=== PATIENT | male | born 1940 | race Asian ===

== ENCOUNTER 2016-11-25 10:13 | Emergency (ER) | payer MEDICARE ==
[2016-11-25] MEDS ORDERED: KETOROLAC 15 MG INJ IV STA (10:25)
[2016-11-25] MEDS ORDERED: SOD CHLORIDE 0.9% 1,000 ML IV STA (10:25)
[2016-11-25] MEDS ORDERED: DIPHTH/TET/ACEL PERTUSS (ADULT) 0.5 ML VIAL IM* ONE (10:30)
[2016-11-25] MEDS ORDERED: NEOMYC/POLYMYX/BACIT 30 GM OINT TOP ONE (10:30)
[2016-11-25 11:02] LABS: ABNORMAL IP MESSAGE 1; BASOPHILS % 0.2 % (0.0-2.0); EOSINOPHILS # 0.2 10^3/ul (0.0-0.5); HEMATOCRIT 40.9 % (42.0-52.0); HEMOGLOBIN 13.1 g/dl (14.0-18.0); LYMPHOCYTES # 0.8 10^3/ul (0.8-2.9); LYMPHOCYTES % 17.5 % (15.0-51.0); MEAN PLATELET VOLUME 9.4 fl (7.4-10.4); MONOCYTE # 0.4 10^3/ul (0.3-0.9); MONOCYTES % 8.6 % (0.0-11.0); NEUTROPHILS % 69.5 % (39.0-77.0); PLATELET COUNT 91 10^3/UL (140-415); POSITIVE DIFF @See below; RED BLOOD COUNT 4.09 10^6/ul (4.70-6.10); WHITE BLOOD COUNT 4.3 10^3/ul (4.8-10.8)
[2016-11-25 11:25] LABS: CALCIUM 8.9 mg/dl (8.4-10.2); CREATININE 0.86 mg/dl (0.61-1.24); POTASSIUM 4.1 mmol/L (3.5-5.1)
--- NOTE | 2016-11-25 11:53 | RADRPT ---
PROCEDURE: XR Chest 1 view. CLINICAL INDICATION: Chest pain TECHNIQUE: AP views of the chest were obtained. COMPARISON: July 10, 2013 FINDINGS: The heart is large. Calcified atherosclerosis is noted in the aorta. Median sternotomy wires overli e the heart. Atrial appendage clip is seen. Replacement heart valve is seen. Scattered subsegment al atelectasis is noted in the bilateral lower lobes. Blunting left costophrenic angle is noted. O sseous structures are intact. IMPRESSION: Cardiomegaly with calcified atherosclerosis in the aorta. Scattered atelectasis in the bilateral lower lobes. Blunting of the left costophrenic angle that may reflect scarring or small pleural effusion. RPTAT: AA .Lewis Corbin MD, MD Date Time Electronically viewed and signed by .Lewis Corbin MD, on 11/25/2016 11:52 .P/
--- NOTE | 2016-11-25 11:55 | RADRPT ---
PROCEDURE: Left knee series. CLINICAL INDICATION: Left knee pain TECHNIQUE: Three views of the left knee. COMPARISON: None available FINDINGS: There is normal mineralization and alignment of the left knee. No acute fracture or dislocation is seen. Joint spaces are not well evaluated as the knee is slightly flexed on the frontal view. No la rge osteophytes are identified. No definite joint effusion is seen. Peripheral atherosclerotic calc ifications are noted. IMPRESSION: 1. No evidence of fracture or dislocation. 2. Peripheral atherosclerotic vascular disease. RPTAT: KK .Chandler Phoenix MD, Date Time Electronically viewed and signed by .Chandler Phoenix MD, MD on 11/25/2016 11:55 .B/
--- NOTE | 2016-11-25 11:56 | RADRPT ---
PROCEDURE: Right knee series. CLINICAL INDICATION: Right knee pain. Evaluate for fracture TECHNIQUE: Three views of the right knee are available for review. COMPARISON: None available FINDINGS: There is normal mineralization and alignment of the bones of the right knee. No acute fracture or d islocation is identified. Joint spaces are poorly evaluated on the frontal view as the knee is slig htly flexed. There are no large osteophytes seen. There is no joint effusion. Peripheral atheroscle rotic calcifications are present. IMPRESSION: 1. Peripheral atherosclerotic vascular disease. 2. Otherwise unremarkable radiographic appearance of the right knee. No evidence of fracture or dis location. RPTAT: KK .Chandler Phoenix MD, MD Date Time Electronically viewed and signed by .Chandler Phoenix MD, on 11/25/2016 11:56 .B/
--- NOTE | 2016-11-25 12:25 | RADRPT ---
PROCEDURE: CT Brain without contrast. CLINICAL INDICATION: Rule out acute intracerebral hemorrhage. TECHNIQUE: A CT of the brain was performed on a multidetector CT scanner utilizing axial sections from the skull base through the vertex without contrast. Images were reviewed on a high-resolution [employer] workstation. Exam CTDI = 44.63 mGy and the DLP = 720.23 mGy-cm. One or the following dose reduction techniques were used: -Automated exposure control. -Adjustment of the mA and/or KV according to patient's size. -Use of iterative reconstruction technique COMPARISON: Previous CT brain 07/10/2013. FINDINGS: Diffuse cerebral and cerebellar atrophy is present. There is proportionate dilatation of the ventri cular system and sulci in a symmetric fashion. There is prominence of the extraaxial spaces secondar y to atrophy. There is no evidence of intracranial hemorrhage, mass effect or midline shift. No abn ormal intra-axial or extra-axial fluid collections are seen. The density of the brain is normal and the martinez/white matter differentiation is well preserved. Patchy diffuse deep white matter microang iopathic ischemic change is seen. 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 The osseous structures and visualized paranasal sinuses are unremarkable. There is a small hematoma in the right forehead. 4. Intracranial atherosclerosis. Vascular calcifications are identified. IMPRESSION: 1. No evidence of acute intracranial pathology. 2. Age-related volume loss and small vessel ischemic changes. 3. Right forehead scalp hematoma. 4. Intracranial atherosclerosis. RPTAT: [facility] Physician Shawn Date Time Electronically viewed and signed by Physician Shawn on 11/25/2016 12:24 /
[2016-11-25] MEDS ORDERED: IBUP400T22 PO (12:35)
[2016-11-25] MEDS ORDERED: VALS320T11 PO (12:51)
[2016-11-25] MEDS ORDERED: PANT40TA3 PO (12:51)
[2016-11-25] MEDS ORDERED: AMLO-218 PO (12:52)
[2016-11-25] MEDS ORDERED: SITA100T8 PO (12:52)
[2016-11-25] MEDS ORDERED: ATOR40TA68 PO (12:52)
[2016-11-25] MEDS ORDERED: ADV50050 INHALATION (12:52)
[2016-11-25] MEDS ORDERED: TIOT18CA INHALATION (12:53)
[2016-11-25] MEDS ORDERED: ALBU8.5H3 INH (12:53)
[2016-11-25] MEDS ORDERED: LEVA15HF6 INH (12:53)
[2016-11-25] MEDS ORDERED: METO-429 PO (13:10)
[2016-11-25] MEDS ORDERED: SIMV5TAB50 PO (13:11)
[2016-11-25] MEDS ORDERED: ASPI81TA3 PO (13:11)
[2016-11-25] MEDS ORDERED: FOLI-49 PO (13:12)
[2016-11-25] MEDS ORDERED: OMEP20CA16 PO (13:12)
[2016-11-25] MEDS ORDERED: LIDOCAINE 1% (MDV) 20 ML INJ SC ONE (13:30)
[2016-11-25 13:56] VITALS: BP 136/84; PULSE 78; RESP 20; TEMP 98.1
--- NOTE | 2016-11-25 14:15 | ERD ---
ER Documentation Chief Complaint Date/Time DATE: 11/25/16 TIME: 14:04 Chief Complaint HPI 76-year-old man brought in by EMS after mechanical fall forward while in the backyard. He injured his knees and sustained a cut to the forehead. He does recall the entire episode there was no loss of consciousness, no complaints of a headache or blurry vision, no neck pain, no paresis or paresthesias. Patient was able to ambulate and denies hip or back pain. Patient was transported to by EMS without further complications. ROS All systems reviewed and are negative except as per history of present illness. Medications Home Meds Reported Medications Omeprazole* (Omeprazole*) 20 Mg Capsule.dr, 20 MG PO AC BREAKFAST, #30 CAP 11/25/16 Folic Acid* (Folic Acid*) 1 Mg Tablet, 1 MG PO DAILY, TAB 11/25/16 Aspirin* (Aspirin* Chew) 81 Mg Tab.chew, 81 MG PO DAILY, TAB.CHEW 11/25/16 Simvastatin* (Simvastatin*) 5 Mg Tablet, 5 MG PO QHS, #30 TAB 11/25/16 Metoprolol Tartrate* (Lopressor*) 50 Mg Tab, 50 MG PO BID, #60 TAB 11/25/16 Discontinued Reported Medications Levalbuterol* (Xopenex* HFA) 15 Gm Inha, 2 PUFFS INH Q4H Y for WHEEZING AND SOB , INHALER 11/25/16 Albuterol Sulfate* (Proair HFA*) 8.5 Gm Hfa.aer.ad, 2 PUFF INH Q4H Y for WHEEZING AND SOB, #1 INHALER 11/25/16 Tiotropium Hamilton* (Spiriva*) 18 Mcg Cap.w.dev, 1 CAP INHALATION DAILY, #30 CAP 11/25/16 Salmeterol Xinaf-Fluticasone* (Advair*) 500/50 Diskus Inhaler, 1 INH INHALATION BID, #1 INHALER 11/25/16 Atorvastatin* (Atorvastatin*) 40 Mg Tablet, 40 MG PO QHS, #30 TAB 11/25/16 Sitagliptin* (Januvia*) 100 Mg Tablet, 100 MG PO DAILY, #30 TAB 11/25/16 Amlodipine Besylate* (Norvasc*) 10 Mg Tablet, 10 MG PO DAILY, TAB 11/25/16 Valsartan* (Diovan*) 320 Mg Tablet, 320 MG PO DAILY, TAB 11/25/16 Pantoprazole* (Protonix*) 40 Mg Tablet.dr, 40 MG PO AC BREAKFAST, TAB 11/25/16 Discontinued Scripts Ibuprofen* (Motrin*) 400 Mg Tab, 400 MG PO Q6H Y for PAIN AND OR ELEVATED TEMP, #30 TAB Prov:VICENTE GRACIA MD 11/25/16 Allergies Allergies: Coded Allergies: No Known Allergy (Unverified , 07/10/13) PMhx/Soc Hypertension, diabetes, CAD, dyslipidemia, asthma History of Surgery: No Anesthesia Reaction: No Hx Neurological Disorder: No Hx Respiratory Disorders: No Hx Cardiac Disorders: Yes (HTN) Hx Psychiatric Problems: No Hx Miscellaneous Medical Probl: Yes (CHOLESTEROL) Hx Alcohol Use: No Hx Substance Use: No Hx Tobacco Use: No Smoking Status: Former smoker FmHx Family History: No diabetes Physical Exam Vitals Vital Signs Date Time Temp Pulse Resp B/P Pulse Ox O2 Delivery O2 Flow Rate FiO2 11/25/16 13:56 98.1 78 20 136/84 96 Room Air Physical Exam GENERAL: Well-developed, well-nourished, well-hydrated, in no apparent distress , looks nontoxic in appearance HEENT: 5 cm laceration to the anterior forehead active bleeding, no cervical spine tenderness or step-off deformity, no hemotympanum NEURO: Alert and oriented 3, cranial nerves II through XII intact bilaterally, pupils equal round reactive to light, no focal deficits or facial asymmetry, sensation intact distally Strength 5/5 in upper and lower extremities bilaterally CARDIAC: Regular rate and rhythm, no murmurs rubs or gallops LUNGS: Clear bilaterally no wheezing crackles or stridor ABDOMEN: Soft nontender, no guarding, no rigidity, no rebound, no psoas sign no obturator sign. Normoactive bowel sounds SKIN: Warm and dry to touch, no abrasions, contusions, or hematomas, no lacerations, no ecchymosis, no target lesions, and without ulcers EXTREMITIES: Bilateral soft tissue contusions to the knees, calves bilaterally symmetrical PSYCH: Normal affect without agitation or irritability Result Diagram: 11/25/16 1040 11/25/16 1040 Results 24 hrs Laboratory Tests Test 11/25/16 10:40 White Blood Count 4.310^3/ul Red Blood Count 4.0910^6/ul Hemoglobin 13.1g/dl Hematocrit 40.9% Mean Corpuscular Volume 100.0fl Mean Corpuscular Hemoglobin 32.0pg Mean Corpuscular Hemoglobin Concent 32.0g/dl Red Cell Distribution Width 13.0% Platelet Count 9110^3/UL Mean Platelet Volume 9.4fl Neutrophils % 69.5% Lymphocytes % 17.5% Monocytes % 8.6% Eosinophils % 4.0% Basophils % 0.2% Nucleated Red Blood Cells % 0.0/100WBC Neutrophils # 3.010^3/ul Lymphocytes # 0.810^3/ul Monocytes # 0.410^3/ul Eosinophils # 0.210^3/ul Basophils # 0.010^3/ul Nucleated Red Blood Cells # 0.010^3/ul Sodium Level 138mmol/L Potassium Level 4.1mmol/L Chloride Level 109mmol/L Carbon Dioxide Level 23mmol/L Anion Gap 10 Blood Urea Nitrogen 19mg/dl Creatinine 0.86mg/dl Glucose Level 93mg/dl Calcium Level 8.9mg/dl Current Medications Medications (Trade) Dose Ordered Sig/Sophia Route PRN Reason Start Time Stop Time Status Last Admin Dose Admin Diphtheria/ Tetanus/Acell Pertussis 0.5 ml 0.5 ml ONCE ONCE IM* 11/25/16 10:30 11/25/16 10:31 DC 11/25/16 10:53 Sodium Chloride (NS) 1,000 ml @ 1,000 mls/hr Q1H STAT IV 11/25/16 10:25 11/25/16 11:24 DC 11/25/16 10:50 Ketorolac Tromethamine (Toradol) 15 mg ONCE STAT IV 11/25/16 10:25 11/25/16 10:27 DC 11/25/16 10:51 Neomycin/ Polymyxin/ Bacitracin (Neosporin Topical Oint) 1 applic ONCE ONCE TOP 11/25/16 10:30 11/25/16 10:31 DC 11/25/16 10:50 Lidocaine (Xylocaine 1% (Mdv) 20 ml) 20 ml ONCE ONCE SC 11/25/16 13:30 11/25/16 13:31 DC Procedures/MDM IV line was established patient was placed on court monitor rhythm strip revealed a sinus rhythm at about 70 bpm with upright P and T waves. Patient was afebrile. I administered 1 L normal saline intravenously, Toradol 50 mg IV, tetanus toxoid 0.5 mL intramuscular injection 1. After laceration was irrigated copiously with saline it was inspected, no foreign bodies were noted, and after suture repair triple antibiotic ointment was applied. X-ray right knee 3V Interpreted by me: Bones: No fracture Joints: No dislocation Foreign body: None X-ray left knee 3V Interpreted by me: Bones: No fracture Joints: No dislocation Foreign body: None Chest X-ray 1V Interpreted by me: Soft Tissue: No acute abnormalities Bones: No acute abnormalities Mediastinum/Cardiac Silhouette/Lungs: No acute abnormalities CT scan of the brain was performed that was negative for acute bleed mass or shift Laceration Repair by me: Anesthesia: 1% lidocaine locally Location: Forehead Tendon/Joint/Nerves: No injury Foreign body: None detected after copious irrigation and exploration Technique: Simple Interrupted Sutures Complexity: Complex suture repair using 5 x 4-O nonabsorbable sutures Post Closure Length: 5 cm Patient's bleeding was easily controlled in the department and there is no indication of anemia. No evidence of compartment syndrome, neurologic injury, vascular injury, open joint, tendon laceration, or foreign body. Patient is appropriate for outpatient follow up. 48 hour wound check. Scar minimization instructions given. Differential diagnoses considered, included but not limited to acute coronary syndrome, pulmonary embolism, aortic dissection, abdominal aortic aneurysm, sepsis, stroke, meningitis, encephalitis, pneumonia, appendicitis, cholecystitis , bowel obstruction, pyelonephritis, nephrolithiasis, cystitis, as well as metabolic, hematologic, and electrolyte abnormalities. As well as abscess, cellulitis, fractures, and dislocations. Patient feels much better at this time, and vital signs are normal, symptoms have improved. I did give strict instructions to return to the ED if symptoms continue or worsen, patient will otherwise follow-up with primary care physician. Patient understood instructions and agreed to plan. Disclaimer: Inadvertent spelling and grammatical errors are likely due to EHR/ dictation software use and do not reflect on the overall quality of patient care. Also, please note that the electronic time recorded on this note does not necessarily reflect the actual time of the patient encounter. Departure Diagnosis: Primary Impression: Knee sprain Encounter type: initial encounter Involved ligament of knee: unspecified ligament Laterality: left Qualified Code: S83.92XA - Sprain of left knee, unspecified ligament, initial encounter Additional Impressions: Scalp laceration Encounter type: initial encounter Qualified Code: S01.01XA - Laceration of scalp, initial encounter Abrasion Condition: Good Patient Instructions: Scalp Contusion With Wake Up, Knee Sprain VICENTE GRACIA MD Nov 25, 2016 14:14
== END 2016-11-25 13:59 | disposition home or self-care (01) ==
LOC: E/R 10:13
DX: S01.01XA Laceration without foreign body of scalp, initial encounter (principal); S83.92XA Sprain of unspecified site of left knee, initial encounter; I25.10 Atherosclerotic heart disease of native coronary artery without angina pectoris; I10 Essential (primary) hypertension; E11.9 Type 2 diabetes mellitus without complications; J45.909 Unspecified asthma, uncomplicated; W18.39XA Other fall on same level, initial encounter; Y92.197 Garden or yard of other specified residential institution as the place of occurrence of the external cause; Z79.82 Long term (current) use of aspirin; Z23 Encounter for immunization
CPT/HCPCS: 12013; 36415; 70450; 71010; 73562; 80048; 85025; 90471; 90715; 96374; 99285; J1885; J7030